=== PATIENT | male | born 1980 | race Caucasian/White ===

== ENCOUNTER 2020-02-01 21:18 | Emergency (ER) | payer OTHER ==
[2020-02-01] MEDS ORDERED: IBUPROFEN 600 MG TABLET PO STA (22:25)
--- NOTE | 2020-02-01 22:34 | XRAY Report ---
Reason: left chest pain Procedure Date: 02/01/2020 Accession Number: [id number] / [id number] Procedure: XR - Chest 2 View X-Ray CPT Code: 60106 Final Report FULL RESULT: EXAM: CHEST RADIOGRAPHY EXAM DATE: 02/01/2020 10:15 PM. CLINICAL HISTORY: Left chest pain. Dog ran into patient. COMPARISON: None. TECHNIQUE: 2 views. FINDINGS: Lungs/Pleura: No focal opacities evident. No pleural effusion. No pneumothorax. Normal volumes. Mediastinum: Heart and mediastinal contours are unremarkable. Other: No fracture identified. IMPRESSION: Normal 2-view chest radiography. RADIA
--- NOTE | 2020-02-01 22:53 | ED Physician Documentation ---
History of Present Illness - Stated complaint Stated Complaint: L RIB PX - Chief complaint Chief Complaint: Trauma Ch/Bk - History obtained from History obtained from: Patient - History of Present Illness Timing: How many days ago (3) Pain level now: 6 Improved by: rest Worsened by: palpation, deep inspiration, movement - Additonal information Additional information: patient was playing with his dogs three days ago when one of his dogs struck patient in his left chest wall. He has had left chest wall pain since then which became significantly worse this evening. Worse with palpation, movement, and deep inspiration Review of Systems Constitutional: denies: Fever Cardiac: reports: Chest pain / pressure Respiratory: denies: Dyspnea, Cough, Hemoptysis GI: denies: Abdominal Pain, Nausea, Vomiting PD PAST MEDICAL HISTORY - Past Medical History Past Medical History: No Cardiovascular: None Respiratory: None Neuro: None Endocrine/Autoimmune: None GI: None : None HEENT: None Psych: None Musculoskeletal: None Derm: None - Past Surgical History Past Surgical History: No - Present Medications Home Medications: Ambulatory Orders Medication Instructions Recorded Confirmed Ibuprofen [Ibu] 600 mg PO Q6HR PRN #20 tablet 02/01/20 - Allergies Allergies/Adverse Reactions: Allergies Allergy/AdvReac Type Severity Reaction Status Date / Time No Known Drug Allergies Allergy Verified 02/01/20 21:32 - Social History Does the pt smoke?: No Smoking Status: Never smoker Does the pt drink ETOH?: Yes ETOH Use: Liquor Does the pt have substance abuse?: No Substance Use and Type: Marijuana PD ED PE NORMAL - Vitals Vital signs reviewed: Yes - General General: Alert and oriented X 3, No acute distress (NAD at rest, appears uncomfortable with movement involving trunk, or with deep breath in, or palpation of left chest wall), Well developed/nourished - Cardiac Cardiac: RRR, No murmur - Respiratory Respiratory: No respiratory distress, Clear bilaterally - Abdomen Abdomen: Soft, Non tender - Derm Derm: Normal color, Warm and dry - Free text exam Free text exam: TTP left anterior chest wall without crepitus Results - Vitals Vitals: Vital Signs - 24 hr 02/01/20 02/01/20 21:20 23:10 Temperature 36.9 C 37.0 C Heart Rate 95 72 Respiratory 18 17 Rate Blood Pressure 132/88 H 117/77 O2 Saturation 99 97 Oxygen O2 Source Room air - Rads (name of study) chest xray Radiology: Prelim report reviewed, See rad report PD MEDICAL DECISION MAKING - ED course Complexity details: reviewed results, re-evaluated patient, considered differential, d/w patient Departure - Departure Disposition: 01 Home, Self Care Clinical Impression: Contusion of chest wall Qualifiers: Encounter type: initial encounter Laterality: left Qualified Code(s): S20.212A - Contusion of left front wall of thorax, initial encounter Condition: Good Instructions: ED Contusion Chest Wall Prescriptions: Ibuprofen [Ibu] 600 mg PO Q6HR PRN #20 tablet PRN Reason: Pain Discharge Date/Time: 02/01/20 23:10
[2020-02-01 23:13] VITALS: BP 117/77
== END 2020-02-01 23:10 | disposition home or self-care (01) ==
LOC: ED 21:18
DX: S20.212A Contusion of left front wall of thorax, initial encounter (principal); W54.1XXA Struck by dog, initial encounter; Y93.89 Activity, other specified
CPT/HCPCS: 71046; 99283; 99284; A9270

== ENCOUNTER 2020-08-01 10:30 | Outpatient (CLI) | payer OTHER ==
--- NOTE | 2020-08-01 13:24 | XRAY Report ---
PROCEDURE: Finger(s) RT INDICATIONS: R FINGER PAIN TECHNIQUE: AP hand, 3 views of the right thumb finger(s) acquired. COMPARISON: None. FINDINGS: Bones: No acute fractures or dislocations. No suspicious bony lesions. No osseous abnormalities cassie ntified at the site of the soft tissue lesion of clinical concern. This is indicated by an arrow on t he images. Soft tissues: No suspicious soft tissue calcifications. No suspicious soft tissue mass lesions. IMPRESSION: Right thumb without acute osseous abnormalities. No suspicious soft tissue mass visualized radiograph ically or underlying osseous abnormalities at the site of clinical concern. Reviewed by: Jarred Ramirez MD on 08/01/2020 1:23 PM PDT Approved by: aJrred Ramirez MD on 08/01/2020 1:23 PM PDT Station ID: [id number]
== END 2020-08-01 23:59 | disposition home or self-care (01) ==
LOC: DI.WCP 10:30
PROVIDERS: ATTEND Physician Assistant
DX: R22.32 Localized swelling, mass and lump, left upper limb (principal)
CPT/HCPCS: 73140

== ENCOUNTER 2022-03-04 07:34 | Emergency (ER) | payer OTHER ==
[2022-03-04 08:05] LABS: BASOPHILS % (AUTO) 0.6 %; EOSINOPHILS % (AUTO) 10.6 %; HCT - HEMATOCRIT 51.1 % (42.0-52.0); HGB - HEMOGLOBIN 18.1 g/dL (14.0-18.0); LYMPHOCYTES % (AUTO) 31.7 %; MEAN CORPUSCULAR HEMOGLOBIN 30.4 pg (27.0-31.0); MEAN CORPUSCULAR HGB CONC 35.4 g/dL (32.0-36.0); MEAN CORPUSCULAR VOLUME 85.9 fL (80.0-94.0); MEAN PLATELET VOLUME 8.5 fL (7.4-11.4); MONOCYTES % (AUTO) 8.4 %; NEUTROPHILS % (AUTO) 48.5 %; PLT - PLATELET COUNT 328 10^3/uL (130-450); RED BLOOD COUNT 5.95 10^6/uL (4.70-6.10); RED CELL DISTRIBUTION WIDTH 12.2 % (12.0-15.0); WHITE BLOOD COUNT 10.6 x10^3/uL (4.8-10.8)
[2022-03-04 08:06] LABS: SLIDE REVIEW? Indicated
[2022-03-04 08:07] LABS: BAND NEUTROPHILS % (MANUAL) 0 %
[2022-03-04 08:23] LABS: ALBUMIN 4.6 g/dL (3.2-5.5); ALBUMIN/GLOBULIN RATIO 1.4 (1.0-2.2); BILIRUBIN,TOTAL 1.4 mg/dL (0.2-1.0); CALCIUM 9.2 mg/dL (8.5-10.3); CREATININE 0.9 mg/dL (0.6-1.2); POTASSIUM 3.8 mmol/L (3.5-5.0); TOTAL PROTEIN 7.9 g/dL (6.7-8.2)
[2022-03-04 08:29] LABS: ABNORMAL LYMPHS % (MANUAL) 6 %; EOSINOPHILS # (MANUAL) 1.4 10^3/uL (0-0.7); LYMPHOCYTES % (MANUAL) 41 %; MONOCYTES # (MANUAL) 0.1 10^3/uL (0.0-1.0); NEUTROPHILS # (MANUAL) 4.1 10^3/uL (1.5-6.6)
[2022-03-04 08:34] LABS: DIFFERENTIAL COMMENT MANUAL DIFFERENTIAL; PLATELET ESTIMATE, MANUAL NORMAL (130-450,000) (NORMAL); PLATELET MORPHOLOGY NORMAL APPEARANCE (NORMAL); RBC MORPHOLOGY (MULTIPLE) 1+ ANISOCYTOSIS (NORMAL); WBC MORPHOLOGY (MULTIPLE) NORMAL APPEARANCE (NORMAL)
--- NOTE | 2022-03-04 08:40 | ED Physician Documentation ---
PD HPI DYSPNEA - Stated complaint Stated Complaint: SOA - Chief complaint Chief Complaint: Resp - History obtained from History obtained from: Patient - Additional information Additional information: The patient comes to the emergency department with chief complaint of dyspnea for the last 5 days. He states that he has had a mild tight cough but no fevers, chills, or nasal congestion. He has not felt ill in any other way. His family is not sick. The patient states that normally, he is very active and has no history of asthma or smoking. He is not exposed to secondhand smoke as a child. He has not had any pain or swelling in his lower extremities. No chest pain. The patient has no personal history of any cardiac issues or history of blood clots, and there is no family history of this either. Patient states he has never had this happen before. He has been moving and states that he has been packing up some things in the garage, but he has not been exclusively there and has not noticed any rodent droppings. Patient denies any history of allergies. Review of Systems Ten Systems: 10 systems reviewed and negative Constitutional: reports: Reviewed and negative Eyes: reports: Reviewed and negative Ears: reports: Reviewed and negative Nose: reports: Reviewed and negative Throat: reports: Reviewed and negative Cardiac: reports: Reviewed and negative Respiratory: reports: Dyspnea, Cough, Wheezing GI: reports: Reviewed and negative : reports: Reviewed and negative Skin: reports: Reviewed and negative Musculoskeletal: reports: Reviewed and negative Neurologic: reports: Reviewed and negative Psychiatric: reports: Reviewed and negative Endocrine: reports: Reviewed and negative Immunocompromised: reports: Reviewed and negative PD PAST MEDICAL HISTORY - Past Medical History Past Medical History: No Cardiovascular: None Respiratory: None Neuro: None Endocrine/Autoimmune: None GI: None : None HEENT: None Psych: None Musculoskeletal: None Derm: None - Past Surgical History Past Surgical History: No - Present Medications Home Medications: Ambulatory Orders Medication Instructions Recorded Confirmed Ibuprofen [Ibu] 600 mg PO Q6HR PRN #20 tablet 02/01/20 03/04/22 Albuterol Sulf [Ventolin Hfa 1 - 2 puffs INH Q4HR PRN #1 inhaler 03/04/22 Inhaler] predniSONE [Deltasone] 60 mg PO DAILY 5 Days #15 tablet 03/04/22 - Allergies Allergies/Adverse Reactions: Allergies Allergy/AdvReac Type Severity Reaction Status Date / Time No Known Drug Allergies Allergy Verified 03/04/22 07:42 - Social History Does the pt smoke?: No Smoking Status: Never smoker Does the pt drink ETOH?: Yes Does the pt have substance abuse?: No - Immunizations Immunizations are current?: Yes PD ED PE NORMAL - Vitals Vital signs reviewed: Yes - General General: Alert and oriented X 3, No acute distress, Well developed/nourished - HEENT HEENT: Atraumatic, PERRL, EOMI, Moist mucous membranes - Neck Neck: Supple, no meningeal sign - Cardiac Cardiac: RRR, No murmur, Strong equal pulses - Respiratory Respiratory: Other (Mildly labored respirations, moderate expiratory wheezes and rhonchi with mildly prolonged expiratory phase.) - Abdomen Abdomen: Normal bowel sounds, Soft, Non tender, Non distended - Derm Derm: Normal color, Warm and dry, No rash - Extremities Extremities: No deformity, No edema - Neuro Neuro: Alert and oriented X 3, 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, Normal speech - Psych Psych: Normal mood, Normal affect Results - Vitals Vitals: Vital Signs - 24 hr 03/04/22 03/04/22 03/04/22 07:39 08:17 09:07 Temperature 36.4 C L Heart Rate 90 86 78 Respiratory 20 22 14 Rate Blood Pressure 155/84 H 143/96 H O2 Saturation 95 97 03/04/22 03/04/22 10:00 11:22 Temperature Heart Rate 96 87 Respiratory 17 19 Rate Blood Pressure 106/69 114/82 H O2 Saturation 95 94 Oxygen O2 Source Room air - Labs Labs: Laboratory Tests 03/04/22 03/04/22 03/04/22 08:00 08:00 08:00 WBC 10.6 RBC 5.95 Hgb 18.1 H Hct 51.1 MCV 85.9 MCH 30.4 MCHC 35.4 RDW 12.2 Plt Count 328 MPV 8.5 Neut # (Auto) Not Reportable Lymph # (Auto) Not Reportable Cochran # (Auto) Not Reportable Eos # (Auto) Not Reportable Baso # (Auto) Not Reportable Absolute Nucleated RBC Not Reportable Total Counted 100 Band Neuts % (Manual) 0 Abnorm Lymph % (Manual) 6 Nucleated RBC % Not Reportable Neutrophils # (Manual) 4.1 Lymphocytes # (Manual) 5.0 H Monocytes # (Manual) 0.1 Eosinophils # (Manual) 1.4 H Basophils # (Manual) 0.0 Differential Comment MANUAL DIFFERENTIAL Manual Slide Review Indicated WBC Morphology NORMAL APPEARANCE Platelet Estimate NORMAL (130-450,000) Platelet Morphology NORMAL APPEARANCE RBC Morph Micro Appear 1+ ANISOCYTOSIS Sodium 138 Potassium 3.8 Chloride 105 Carbon Dioxide 23 Anion Gap 10.0 BUN 11 Creatinine 0.9 Estimated GFR (MDRD) 93 Glucose 145 H Calcium 9.2 Total Bilirubin 1.4 H AST 24 ALT 22 Alkaline Phosphatase 70 Troponin I High Sens 4.7 Total Protein 7.9 Albumin 4.6 Globulin 3.3 Albumin/Globulin Ratio 1.4 Lipase 127 H Nasal Adenovirus (PCR) Nasal B. parapertussis DNA (PCR) Nasal Coronavir 229E PCR Nasal Coronavir HKU1 PCR Nasal Coronavir NL63 PCR Nasal Coronavir OC43 PCR Nasal Enterovir/Rhinovir PCR Nasal Influenza B PCR Nasal Influenza A PCR Nasal Parainfluen 1 PCR Nasal Parainfluen 2 PCR Nasal Parainfluen 3 PCR Nasal Parainfluen 4 PCR Nasal RSV (PCR) Nasal B.pertussis DNA PCR Nasal C.pneumoniae (PCR) Lawrence Human Metapneumo PCR Nasal M.pneumoniae (PCR) Nasal SARS-CoV-2 (PCR) 03/04/22 08:45 WBC RBC Hgb Hct MCV MCH MCHC RDW Plt Count MPV Neut # (Auto) Lymph # (Auto) Cochran # (Auto) Eos # (Auto) Baso # (Auto) Absolute Nucleated RBC Total Counted Band Neuts % (Manual) Abnorm Lymph % (Manual) Nucleated RBC % Neutrophils # (Manual) Lymphocytes # (Manual) Monocytes # (Manual) Eosinophils # (Manual) Basophils # (Manual) Differential Comment Manual Slide Review WBC Morphology Platelet Estimate Platelet Morphology RBC Morph Micro Appear Sodium Potassium Chloride Carbon Dioxide Anion Gap BUN Creatinine Estimated GFR (MDRD) Glucose Calcium Total Bilirubin AST ALT Alkaline Phosphatase Troponin I High Sens Total Protein Albumin Globulin Albumin/Globulin Ratio Lipase Nasal Adenovirus (PCR) NOT DETECTED Nasal B. parapertussis DNA (PCR) NOT DETECTED Nasal Coronavir 229E PCR NOT DETECTED Nasal Coronavir HKU1 PCR NOT DETECTED Nasal Coronavir NL63 PCR NOT DETECTED Nasal Coronavir OC43 PCR NOT DETECTED Nasal Enterovir/Rhinovir PCR NOT DETECTED Nasal Influenza B PCR NOT DETECTED Nasal Influenza A PCR NOT DETECTED Nasal Parainfluen 1 PCR NOT DETECTED Nasal Parainfluen 2 PCR NOT DETECTED Nasal Parainfluen 3 PCR NOT DETECTED Nasal Parainfluen 4 PCR NOT DETECTED Nasal RSV (PCR) NOT DETECTED Nasal B.pertussis DNA PCR NOT DETECTED Nasal C.pneumoniae (PCR) NOT DETECTED Lawrence Human Metapneumo PCR NOT DETECTED Nasal M.pneumoniae (PCR) NOT DETECTED Nasal SARS-CoV-2 (PCR) NOT DETECTED - Rads (name of study) chest XR Radiology: Final report received, EMP read indepedently, See rad report PD MEDICAL DECISION MAKING - ED course Complexity details: reviewed results, re-evaluated patient, considered differential, d/w patient ED course: The patient's work-up, including chest x-ray and viral panel, was unremarkable. I discussed with the patient possible triggers for his bronchospasm. He was treated with a DuoNeb and steroids and feeling much better on reevaluation. We discussed the need for follow-up with his primary care physician for further evaluation. He has been given prescriptions for prednisone and an albuterol inhaler. We have discussed the usual indications for return. Departure - Departure Disposition: 01 Home, Self Care Clinical Impression: Acute bronchospasm Condition: Stable Instructions: ED Reactive Airway Disease Prescriptions: Albuterol Sulf [Ventolin Hfa Inhaler] 1 - 2 puffs INH Q4HR PRN #1 inhaler PRN Reason: Shortness Of Air/Wheezing predniSONE [Deltasone] 60 mg PO DAILY 5 Days #15 tablet Comments: Your x-ray and labs look good. It is not clear what has caused your airways to spasm up, but you are having an asthma-like reaction at this time. You have responded well to steroids and breathing treatments here and will be given prescription for a steroid and an inhaler at home. If you continue to have flareups like this for more than the next couple weeks, you should follow-up with your primary doctor to discuss whether further testing is necessary. Your viral panel is negative, so it is most likely that something else irritated your airways and cause this reaction. If you develop severe difficulty breathing that is not relieved by the prescribed medications, please return to the emergency department immediately. Discharge Date/Time: 03/04/22 11:31
[2022-03-04] MEDS: IPRATROPIUM/ALBUTEROL 3 ML NEB INH STA (08:47)
[2022-03-04] MEDS: ALBUTEROL NEB 2.5 MG/3 ML INH STA (08:47)
[2022-03-04] MEDS: DEXAMETHASONE 10 MG/ML VIAL IV STA (08:48)
--- NOTE | 2022-03-04 08:55 | XRAY Report ---
PROCEDURE: Chest 1 View X-Ray INDICATIONS: Chest pain TECHNIQUE: One view of the chest was acquired. COMPARISON: Chest x-ray 02/01/2020 FINDINGS: Surgical changes and devices: None. Lungs and pleura: No pleural effusions or pneumothorax. Lungs are clear. Mediastinum: Mediastinal contours appear normal. Heart size is normal. Bones and chest wall: No suspicious bony lesions. Overlying soft tissues appear unremarkable. IMPRESSION: No acute pulmonary process. Reviewed by: Marsha Knowles MD on 03/04/2022 8:53 AM PDT Approved by: Marsha Knowles MD on 03/04/2022 8:53 AM PDT Station ID: [id number]
[2022-03-04 09:59] LABS: B. PARAPERTUSSIS- RESP PCR PAN NOT DETECTED; B. PERTUSSIS- RESP PCR PANEL NOT DETECTED; C. PNEUMONIAE- RESP PCR PANEL NOT DETECTED; CORONAVIRUS 229E-RESP PCR NOT DETECTED; CORONAVIRUS HKU1-RESP PCR NOT DETECTED; CORONAVIRUS NL63-RESP PCR NOT DETECTED; CORONAVIRUS OC43-RESP PCR NOT DETECTED; HUMAN METAPNEUMOVIRUS NOT DETECTED; INFLUENZA A- RESP PCR PANEL NOT DETECTED; INFLUENZA B - RESP PCR PANEL NOT DETECTED; M. PNEUMONIAE- RESP PCR PANEL NOT DETECTED; PARAINFLUENZA VIRUS 1 NOT DETECTED; PARAINFLUENZA VIRUS 2 NOT DETECTED; PARAINFLUENZA VIRUS 3 NOT DETECTED; PARAINFLUENZA VIRUS 4 NOT DETECTED; RHINOVIRUS/ENTEROVIRUS NOT DETECTED; RSV- RESP PCR PANEL NOT DETECTED; SARS-CoV-2 -RESP PCR PANEL NOT DETECTED
[2022-03-04 11:23] VITALS: BP 114/82
== END 2022-03-04 11:31 | disposition home or self-care (01) ==
LOC: ED 07:34
DX: J98.01 Acute bronchospasm (principal); Z20.822 Contact with and (suspected) exposure to COVID-19
CPT/HCPCS: 36415; 80053; 83690; 84484; 85025; 87633; 93005; 94640; 96374; 99282

== ENCOUNTER 2022-08-01 01:48 | Outpatient (CLI) | payer OTHER | END 2022-08-01 23:59 | disposition critical access hospital (66) | LOC: EMS 01:48 | DX: R06.00 Dyspnea, unspecified (principal); R05.9 Cough, unspecified | CPT/HCPCS: A0425; A0427 ==

== ENCOUNTER 2022-08-01 02:00 | Emergency (ER) | payer OTHER ==
[2022-08-01] MEDS ORDERED: IPRATROPIUM/ALBUTEROL 3 ML NEB INH STA (02:18)
[2022-08-01] MEDS ORDERED: predniSONE 20 MG TABLET PO STA (02:18)
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
[2022-08-01 03:07] VITALS: BP 125/80
[2022-08-01 03:24] LABS: B. PARAPERTUSSIS- RESP PCR PAN NOT DETECTED; B. PERTUSSIS- RESP PCR PANEL NOT DETECTED; C. PNEUMONIAE- RESP PCR PANEL NOT DETECTED; CORONAVIRUS 229E-RESP PCR NOT DETECTED; CORONAVIRUS HKU1-RESP PCR NOT DETECTED; CORONAVIRUS NL63-RESP PCR NOT DETECTED; CORONAVIRUS OC43-RESP PCR NOT DETECTED; HUMAN METAPNEUMOVIRUS NOT DETECTED; INFLUENZA A- RESP PCR PANEL NOT DETECTED; INFLUENZA B - RESP PCR PANEL NOT DETECTED; M. PNEUMONIAE- RESP PCR PANEL NOT DETECTED; PARAINFLUENZA VIRUS 1 NOT DETECTED; PARAINFLUENZA VIRUS 2 NOT DETECTED; PARAINFLUENZA VIRUS 3 NOT DETECTED; PARAINFLUENZA VIRUS 4 NOT DETECTED; RHINOVIRUS/ENTEROVIRUS NOT DETECTED; RSV- RESP PCR PANEL NOT DETECTED; SARS-CoV-2 -RESP PCR PANEL NOT DETECTED
--- NOTE | 2022-08-01 07:16 | XRAY Report ---
PROCEDURE: Chest 1 View X-Ray INDICATIONS: SOA TECHNIQUE: One view of the chest was acquired. COMPARISON: CXR 03/04/2022, 02/01/2020 FINDINGS: Surgical changes and devices: None. Lungs and pleura: No pleural effusions or pneumothorax. No consolidation. Mediastinum: Mediastinal contours appear normal. Heart size is normal. Bones and chest wall: No suspicious bony lesions. Overlying soft tissues appear unremarkable. IMPRESSION: No acute cardiopulmonary abnormality. This report is concordant with the overnight preliminary interpretation. Reviewed by: Marshal Haines MD on 08/01/2022 6:15 AM GALEN Approved by: Marshal Haines MD on 08/01/2022 6:15 AM GALEN Station ID: [id number]
== END 2022-08-01 03:06 | disposition home or self-care (01) ==
LOC: ED 02:00
DX: J45.909 Unspecified asthma, uncomplicated (principal); Z20.822 Contact with and (suspected) exposure to COVID-19
CPT/HCPCS: 71045; 87633; 94640; 99282; 99284; J7512

== ENCOUNTER 2022-09-15 07:17 | Outpatient (CLI) | payer OTHER ==
[2022-09-15 07:28] LABS: BASOPHILS % (AUTO) 0.4 %; EOSINOPHILS # (AUTO) 0.6 10^3/uL (0.0-0.7); EOSINOPHILS % (AUTO) 7.3 %; LYMPHOCYTES # (AUTO) 3.7 10^3/uL (1.5-3.5); LYMPHOCYTES % (AUTO) 46.1 %; MEAN CORPUSCULAR HEMOGLOBIN 29.3 pg (27.0-31.0); MEAN CORPUSCULAR HGB CONC 33.3 g/dL (32.0-36.0); MEAN CORPUSCULAR VOLUME 87.8 fL (80.0-94.0); MEAN PLATELET VOLUME 8.1 fL (7.4-11.4); MONOCYTES # (AUTO) 0.8 10^3/uL (0.0-1.0); MONOCYTES % (AUTO) 9.7 %; NEUTROPHILS # (AUTO) 2.9 10^3/uL (1.5-6.6); NEUTROPHILS % (AUTO) 36.1 %; PLT - PLATELET COUNT 327 10^3/uL (130-450); RED BLOOD COUNT 5.47 10^6/uL (4.70-6.10); WHITE BLOOD COUNT 8.1 x10^3/uL (4.8-10.8)
[2022-09-15 07:49] LABS: ALBUMIN/GLOBULIN RATIO 1.1 (1.0-2.2); ALKALINE PHOSPHATASE 79 IU/L (42-121); ALT ALANINE AMINOTRANSFERASE 20 IU/L (10-60); AST ASPARTATE AMINOTRANSFERASE 20 IU/L (10-42); BILIRUBIN,TOTAL 0.7 mg/dL (0.2-1.0); BUN - BLOOD UREA NITROGEN 8 mg/dL (6-20); CALCIUM 9.4 mg/dL (8.5-10.3); CARBON DIOXIDE - CO2 28 mmol/L (21-32); CHLORIDE 102 mmol/L (101-111); CHOL/HDL RATIO 2.7 (<5.0); CHOLESTEROL 169 mg/dL; CREATININE 0.9 mg/dL (0.6-1.2); GFR - MDRD 93 (>89); GLUCOSE 104 mg/dL (70-100); HDL CHOLESTEROL 63 mg/dL; LDL CHOLESTEROL,CALCULATED 94 mg/dL; LDL/HDL RATIO 1.5 (<3.6); POTASSIUM 3.9 mmol/L (3.5-5.0); SODIUM 140 mmol/L (135-145); TOTAL PROTEIN 7.7 g/dL (6.7-8.2); TRIGLYCERIDES 62 mg/dL; VLDL CHOLESTEROL 12 mg/dL
== END 2022-09-15 07:18 | disposition home or self-care (01) ==
LOC: LAB 07:17
PROVIDERS: ATTEND Physician Assistant
DX: Z00.00 Encounter for general adult medical examination without abnormal findings (principal); Z13.220 Encounter for screening for lipoid disorders
CPT/HCPCS: 36415; 80053; 80061; 83721; 85025

== ENCOUNTER 2022-11-17 10:46 | Outpatient (CLI) | payer OTHER | END 2022-11-17 10:47 | disposition home or self-care (01) | LOC: DI 10:46 | PROVIDERS: ATTEND Physician Assistant | DX: R06.01 Orthopnea (principal); R06.09 Other forms of dyspnea | CPT/HCPCS: 93306 ==

== ENCOUNTER 2023-12-27 17:21 | Emergency (ER) | payer OTHER ==
[2023-12-27 17:54] LABS: BASOPHILS % (AUTO) 0.2 %; EOSINOPHILS # (AUTO) 0.1 10^3/uL (0.0-0.7); EOSINOPHILS % (AUTO) 1.2 %; HCT - HEMATOCRIT 46.9 % (42.0-52.0); LYMPHOCYTES % (AUTO) 24.9 %; MEAN CORPUSCULAR HEMOGLOBIN 29.9 pg (27.0-31.0); MEAN CORPUSCULAR HGB CONC 34.1 g/dL (32.0-36.0); MEAN CORPUSCULAR VOLUME 87.5 fL (80.0-94.0); MEAN PLATELET VOLUME 8.7 fL (7.4-11.4); MONOCYTES # (AUTO) 1.2 10^3/uL (0.0-1.0); MONOCYTES % (AUTO) 10.1 %; NEUTROPHILS # (AUTO) 7.6 10^3/uL (1.5-6.6); NEUTROPHILS % (AUTO) 63.4 %; PLT - PLATELET COUNT 243 10^3/uL (130-450); RED BLOOD COUNT 5.36 10^6/uL (4.70-6.10); RED CELL DISTRIBUTION WIDTH 12.4 % (12.0-15.0); WHITE BLOOD COUNT 11.9 x10^3/uL (4.8-10.8)
[2023-12-27 18:11] LABS: ALBUMIN 4.1 g/dL (3.2-5.5); ALBUMIN/GLOBULIN RATIO 1.5 (1.0-2.2); BILIRUBIN,TOTAL 0.6 mg/dL (0.2-1.0); CALCIUM 9.4 mg/dL (8.5-10.3); CREATININE 0.9 mg/dL (0.6-1.3); POTASSIUM 3.8 mmol/L (3.5-4.5); TOTAL PROTEIN 6.9 g/dL (6.4-8.9)
[2023-12-27 18:34] LABS: B. PARAPERTUSSIS- RESP PCR PAN NOT DETECTED; B. PERTUSSIS- RESP PCR PANEL NOT DETECTED; C. PNEUMONIAE- RESP PCR PANEL NOT DETECTED; CORONAVIRUS 229E-RESP PCR NOT DETECTED; CORONAVIRUS HKU1-RESP PCR NOT DETECTED; CORONAVIRUS NL63-RESP PCR NOT DETECTED; CORONAVIRUS OC43-RESP PCR NOT DETECTED; HUMAN METAPNEUMOVIRUS NOT DETECTED; INFLUENZA A- RESP PCR PANEL NOT DETECTED; INFLUENZA B - RESP PCR PANEL NOT DETECTED; M. PNEUMONIAE- RESP PCR PANEL NOT DETECTED; PARAINFLUENZA VIRUS 1 NOT DETECTED; PARAINFLUENZA VIRUS 2 NOT DETECTED; PARAINFLUENZA VIRUS 3 NOT DETECTED; PARAINFLUENZA VIRUS 4 NOT DETECTED; RHINOVIRUS/ENTEROVIRUS NOT DETECTED; RSV- RESP PCR PANEL NOT DETECTED; SARS-CoV-2 -RESP PCR PANEL NOT DETECTED
--- NOTE | 2023-12-27 20:36 | ED Physician Documentation ---
History of Present Illness - Stated complaint Stated Complaint: FRAIRE/SORE THORAT/BODY ACHES - Chief complaint Chief Complaint: General - Additonal information Additional information: 43-year-old male with no pertinent past medical history presents emergency department for body aches sore throat. Patient says on Wednesday he had a syncopal episode he says that he is very prone to vasovagal when he is getting his blood drawn or if he does not eat or drink enough he said that day he knew for sure that he had not had a back to eat or drink he got up to have dinner and as he was sitting there he was feeling the symptoms that he normally gets prior to passing out and did have an syncopal episode. Since then he has been feeling dizzy but he also says he has not been eating or drinking enough he does not know if he has been having any known fevers but has been feeling chills with bodyaches and a worsening sore throat. He has had mild diarrhea about 1 episode a day no emesis but mild nausea PD PAST MEDICAL HISTORY - Past Medical History Past Medical History: No Cardiovascular: None Respiratory: None Neuro: None Endocrine/Autoimmune: None GI: None : None HEENT: None Psych: None Musculoskeletal: None Derm: None - Past Surgical History Past Surgical History: No - Present Medications Home Medications: Ambulatory Orders Medication Instructions Recorded Confirmed Ibuprofen [Ibu] 600 mg PO Q6HR PRN #20 tablet 02/01/20 03/04/22 Albuterol Sulf [Ventolin Hfa 1 - 2 puffs INH Q4HR PRN #1 inhaler 03/04/22 Inhaler] predniSONE [Deltasone] 60 mg PO DAILY 5 Days #15 tablet 03/04/22 Albuterol Sulf [Ventolin Hfa 1 - 2 puffs INH Q4HR PRN #1 each 08/01/22 Inhaler] predniSONE [Deltasone] 60 mg PO DAILY 5 Days #15 tablet 08/01/22 - Allergies Allergies/Adverse Reactions: Allergies Allergy/AdvReac Type Severity Reaction Status Date / Time No Known Drug Allergies Allergy Verified 12/27/23 19:55 - Social History Does the pt smoke?: No Smoking Status: Never smoker Does the pt drink ETOH?: Yes Does the pt have substance abuse?: No - Immunizations Immunizations are current?: Yes - POLST Patient has POLST: No PD ED PE NORMAL - Vitals Vital signs reviewed: Yes - General General: Alert and oriented X 3, No acute distress, Well developed/nourished - HEENT HEENT: Atraumatic, PERRL, Other (tonsils 3+ bilaterally. erythema through pharynx) - Neck Neck: Supple, no meningeal sign, No adenopathy - Cardiac Cardiac: RRR - Respiratory Respiratory: No respiratory distress, Clear bilaterally - Abdomen Abdomen: Normal bowel sounds, Non tender - Psych Psych: Normal mood Results - Vitals Vitals: Vital Signs - 24 hr 12/27/23 12/27/23 12/27/23 17:26 20:07 21:18 Temperature 36.6 C Heart Rate 80 86 95 Respiratory 16 16 16 Rate Blood Pressure 127/80 117/88 H 135/74 H O2 Saturation 98 96 95 Oxygen O2 Source Room air - EKG (time done) 2112 EKG releavant findings:: EKG personally interpreted by author of this note. Relevant findings are: Rate: Rate (enter#) (83) Rhythm: NSR [place]: Normal Intervals: Normal [place] QRS: Normal Ischemia: Normal ST segments Computer interpretation: Agree with computer - Labs Labs: Laboratory Tests 12/27/23 12/27/23 12/27/23 17:30 17:48 17:48 WBC 11.9 H RBC 5.36 Hgb 16.0 Hct 46.9 MCV 87.5 MCH 29.9 MCHC 34.1 RDW 12.4 Plt Count 243 MPV 8.7 Neut # (Auto) 7.6 H Lymph # (Auto) 3.0 [place] # (Auto) 1.2 H Eos # (Auto) 0.1 Baso # (Auto) 0.0 Absolute Nucleated RBC 0.00 Nucleated RBC % 0.0 Sodium 136 Potassium 3.8 Chloride 103 Carbon Dioxide 25 Anion Gap 8.0 BUN 8 Creatinine 0.9 Estimated GFR (MDRD) 92 Glucose 120 H Calcium 9.4 Total Bilirubin 0.6 AST 26 ALT 24 Alkaline Phosphatase 57 Total Protein 6.9 Albumin 4.1 Globulin 2.8 Albumin/Globulin Ratio 1.5 Lipase 155 H Urine Color Urine Clarity Urine pH Ur Specific [place] Urine Protein Urine Glucose (UA) Urine Ketones Urine Occult Blood Urine Nitrite Urine Bilirubin Urine Urobilinogen Ur Leukocyte Esterase Urine RBC Urine WBC Ur Squamous Epith Cells Urine Bacteria Ur Microscopic Review Urine Culture Comments Nasal Adenovirus (PCR) NOT DETECTED Nasal B. parapertussis DNA (PCR) NOT DETECTED Nasal Coronavir 229E PCR NOT DETECTED Nasal Coronavir HKU1 PCR NOT DETECTED Nasal Coronavir NL63 PCR NOT DETECTED Nasal Coronavir OC43 PCR NOT DETECTED Nasal Enterovir/Rhinovir PCR NOT DETECTED Nasal Influenza B PCR NOT DETECTED Nasal Influenza A PCR NOT DETECTED Nasal Parainfluen 1 PCR NOT DETECTED Nasal Parainfluen 2 PCR NOT DETECTED Nasal Parainfluen 3 PCR NOT DETECTED Nasal Parainfluen 4 PCR NOT DETECTED Nasal RSV (PCR) NOT DETECTED Nasal B.pertussis DNA PCR NOT DETECTED Nasal C.pneumoniae (PCR) NOT DETECTED [place] Human Metapneumo PCR NOT DETECTED Nasal M.pneumoniae (PCR) NOT DETECTED Nasal SARS-CoV-2 (PCR) NOT DETECTED 12/27/23 20:40 WBC RBC Hgb Hct MCV MCH MCHC RDW Plt Count MPV Neut # (Auto) Lymph # (Auto) [place] # (Auto) Eos # (Auto) Baso # (Auto) Absolute Nucleated RBC Nucleated RBC % Sodium Potassium Chloride Carbon Dioxide Anion Gap BUN Creatinine Estimated GFR (MDRD) Glucose Calcium Total Bilirubin AST ALT Alkaline Phosphatase Total Protein Albumin Globulin Albumin/Globulin Ratio Lipase Urine Color DARK YELLOW Urine Clarity CLEAR Urine pH 6.5 Ur Specific [place] 1.015 Urine Protein NEGATIVE Urine Glucose (UA) NEGATIVE Urine Ketones 15 H Urine Occult Blood SMALL H Urine Nitrite NEGATIVE Urine Bilirubin SMALL H Urine Urobilinogen 0.2 (NORMAL) Ur Leukocyte Esterase NEGATIVE Urine RBC 0-5 Urine WBC 0-3 Ur Squamous Epith Cells RARE Squamous Urine Bacteria None Seen Ur Microscopic Review INDICATED Urine Culture Comments NOT INDICATED Nasal Adenovirus (PCR) Nasal B. parapertussis DNA (PCR) Nasal Coronavir 229E PCR Nasal Coronavir HKU1 PCR Nasal Coronavir NL63 PCR Nasal Coronavir OC43 PCR Nasal Enterovir/Rhinovir PCR Nasal Influenza B PCR Nasal Influenza A PCR Nasal Parainfluen 1 PCR Nasal Parainfluen 2 PCR Nasal Parainfluen 3 PCR Nasal Parainfluen 4 PCR Nasal RSV (PCR) Nasal B.pertussis DNA PCR Nasal C.pneumoniae (PCR) [place] Human Metapneumo PCR Nasal M.pneumoniae (PCR) Nasal SARS-CoV-2 (PCR) PD Medical Decision Making - ED course ED course: This patient presents with symptoms suspicious for likely viral upper respiratory infection. Based on history and physical doubt sinusitis. Do not suspect underlying cardiopulmonary process. I considered, but think unlikely, dangerous causes of this patients symptoms to include ACS, CHF or COPD exacerbations, pneumonia, pneumothorax. EKG was also complete for further evaluation and there was no NSTEMI or other acute EKG abnormalities or findingsPatient is nontoxic appearing and not in need of emergent medical intervention He was offered an IV for IV fluids patient kindly declined at this time. He was given dexamethasone to help with the sore throat. As well as Zofran to help with his nausea patient was encouraged to continue to push fluids going home given that he is very prone to having syncopal episodes and this is very normal for him I do not believe any further emergent workup is indicated at this time. Labs are collected he has mild leukocytosis, WBC 11.9, slightly elevated neutrophils 7.6 no significant electrolyte abnormalities lipase slightly elevated at 155 but he denies any abdominal pain. Urinalysis does not indicate any signs or symptoms of infection respiratory panel is negative. Patient told to follow-up with primary care provider he was given very strict ER return precautions all questions answered and I believe that he is safe for discharge at this time. Departure - Departure Disposition: Home, Self Care Clinical Impression: Upper respiratory infection Qualifiers: URI type: unspecified viral URI Qualified Code(s): J06.9 - Acute upper respiratory infection, unspecified Instructions: Sore Throats Self Care, Cold Virus Comments: Thank you for trusting us with your care, we have evaluated you for Thank you for trusting us with your care, we have evaluated you for your sore throat. We are not seeing any obvious viruses on the respiratory panel that we have completed here in the emergency department although as we discussed there are many viruses that we do not test for. As we discussed going home make sure you are staying plenty well-hydrated with things like electrolytes like coconut water. We have given you some dexamethasone and Zofran here in the emergency department to help with your sore throat and your nausea. We are also sending you home with some Zofran overnight to help with your ongoing nausea to make sure that you are keeping fluids down. Please follow-up with your primary care provider as needed. Please come back to the emergency department for having any worsening symptoms, fevers lasting longer than 5 days, or any other concerning emergent needs. Forms: PCP List Discharge Date/Time: 12/27/23 21:18
[2023-12-27] MEDS: CHERRY SYRUP 10 ML UDC PO ONE (20:44)
[2023-12-27] MEDS: ONDANSETRON ODT 4 MG Prepack 2 TL PRN (20:44)
[2023-12-27] MEDS: DEXAMETHASONE 10 MG/ML VIAL PO STA (20:44)
[2023-12-27] MEDS: ONDANSETRON ODT 4 MG TABLET TL STA (20:44)
[2023-12-27 20:55] LABS: BILIRUBIN,URINE SMALL (NEGATIVE); GLUCOSE, URINE (UA) NEGATIVE (NEGATIVE); KETONES,URINE (UA) 15 mg/dL (NEGATIVE); LEUKOCYTE ESTERASE, URINE NEGATIVE (NEGATIVE); NITRITE,URINE NEGATIVE (NEGATIVE); OCCULT BLOOD,URINE SMALL (NEGATIVE); PH,URINE 6.5 PH (5.0-7.5); PROTEIN,URINE NEGATIVE (NEGATIVE); UROBILINOGEN,URINE 0.2 (NORMAL) E.U./dL (NORMAL)
[2023-12-27 20:59] LABS: CLARITY,URINE CLEAR (CLEAR)
[2023-12-27 21:03] LABS: BACTERIA,URINE None Seen /HPF (None Seen); RBC,URINE 0-5 /HPF (0-5); SQUAMOUS EPITHELIAL CELL,UR RARE Squamous (<= Few); WBC,URINE 0-3 /HPF (0-3)
[2023-12-27 21:26] VITALS: BP 135/74; O2SAT 95
== END 2023-12-27 21:18 | disposition home or self-care (01) ==
LOC: ED 17:21
DX: J06.9 Acute upper respiratory infection, unspecified (principal); Z11.52 Encounter for screening for COVID-19
CPT/HCPCS: 36415; 80053; 81001; 83690; 85025; 87633; 93005; 99283; A9270; Q0162; 81003; 87086